=== PATIENT | male | born 1980 | race Caucasian/White ===

== ENCOUNTER 2016-04-27 17:07 | Emergency (ER) | payer MEDICAID ==
[2016-04-27 17:13] VITALS: BP 146/91
[2016-04-27] MEDS ORDERED: Lidocaine 1% 20 ML MDV INJECT ONE (17:24)
[2016-04-27] MEDS ORDERED: Bacitracin/Neomycin/Polymyxin B Oint 0.9 GM U/D Packet TOP ONE (17:25)
--- NOTE | 2016-04-27 17:43 | EDM.PDOC ---
ED HPI Skin/Rash - General Chief Complaint: Laceration Stated Complaint: CUT Time Seen by Provider: 04/27/16 17:20 Source: Reports: Patient History Limitations: Reports: No limitations - History of Present Illness INITIAL COMMENTS - FREE TEXT/NARRATIVE: This patient is a 35 year old male that presents to the ER. Patient reports that he was at home and cut his left hand with a knife. Patient reports it was clean. Patient reports laceration to the left hand near proximal base of thumb. Denies other injury. TDAP UTD. Extremity full ROM. pulses +2. cap refill <2 sec , sensory/motor function intact. Neurovascular intact. Symptom Onset Date: 04/27/16 Symptom Onset Time: 16:45 Timing: Reports: still present Location, Skin: Reports: upper extremity, left Front/Back Body Image: 1 - 1 cm laceration. Severity: mild Place of Occurrence: home Recent Medical Care: no - Related Data Allergies Allergy/AdvReac Type Severity Reaction Status Date / Time latex Allergy Hives Verified 04/27/16 17:14 coban Allergy Itching Uncoded 04/27/16 17:14 Home Meds: Ambulatory Orders Medication Instructions Recorded Confirmed Acetaminophen [Tylenol Extra 1,000 mg PO Q4H PRN 03/01/13 04/27/16 Strength] Ibuprofen [Motrin] 200 mg PO QID PRN 03/01/13 04/27/16 Albuterol [Proair HFA] 2 puff INH Q4HR PRN 10/24/14 04/27/16 Diclofenac Sodium 1 drop EYEBOTH QID 11/30/15 04/27/16 Modafinil [Provigil] 200 mg PO DAILY 11/30/15 04/27/16 Propranolol [Inderal LA] 30 mg PO DAILY 11/30/15 04/27/16 SUMAtriptan Succinate [Imitrex] 100 mg PO DAILY PRN 11/30/15 04/27/16 Past Medical History Other Gastrointestinal History: chronic diarrhea - Past Surgical History Other HEENT Surgeries/Procedures: surgery on his right eye. 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 Social & Family History - Family History Family Medical History: Noncontributory - Tobacco Use Smoking Status *Q: Current Every Day Smoker Years of Tobacco use: 20 Packs/Tins Daily: 0.5 Used Tobacco, but Quit: No Second Hand Smoke Exposure: Yes - Caffeine Use Caffeine Use: Reports: Soda - Alcohol Use Days Per Week of Alcohol Use: 1 Number of Drinks Per Day: 3 (drinks very little compared to previous) Total Drinks Per Week: 3 - Recreational Drug Use Recreational Drug Use: No - Living Situation & Occupation Living situation: Reports: with significant other Occupation: other (currently on [employer] ED ROS GENERAL - Review of Systems Review Of Systems: See Below Constitutional: Reports: no symptoms HEENT: Reports: No symptoms Respiratory: Reports: no symptoms Cardiovascular: Reports: No symptoms Endocrine: Reports: no symptoms GI/Abdominal: Reports: No symptoms : Reports: no symptoms Musculoskeletal: Reports: no symptoms Skin: Reports: wound (laceration left hand) Neurological: Reports: no symptoms Psychiatric: Reports: No symptoms Hematologic/Lymphatic: Reports: no symptoms Immunologic: Reports: no symptoms ED EXAM, SKIN/RASH Exam: See Below Exam Limited By: No limitations General Appearance: alert, WD/WN, no apparent distress Cardiovascular: normal peripheral pulses Peripheral Pulses: 2+: radial (L), radial (R) Extremities: normal range of motion, non-tender, no pedal edema, normal capillary refill Skin: Warm, Dry, Normal color, No rash, Wound/incision (small 1 cm laceration left hand.) Location, Skin: upper extremity, left ED SKIN PROCEDURES - Laceration/Wound Repair Left Dorsal Hand Lac/wound length in cm: 1 Appearance: subcutaneous Distal NVT: neuro & vascular intact, no tendon injury Anesthetic type: local Local anesthesia - Lidocaine (Xylocaine): 1% plain Local anesthetic volume: 2cc Skin prep: chlorhexidine (hibiciens) Exploration/Debridement/Repair: wound explored, in a bloodless field, explored to base, no foreign material found Closed with: sutures Suture size: other (5-0) # of sutures: 2 Suture type: nylon Tetanus status addressed: Yes Complications: No Course - Vital Signs Last Recorded V/S: Last Vital Signs Temp 98.7 F 04/27/16 17:11 Pulse 97 04/27/16 17:11 Resp 20 04/27/16 17:11 BP 146/91 H 04/27/16 17:11 Pulse Ox 93 L 04/27/16 17:11 - Orders/Labs/Meds Meds: Medications Discontinued Medications Generic Name Dose Route Start Last Admin Trade Name Rashawn PRN Reason Stop Dose Admin Lidocaine HCl 6 ml 04/27/16 17:24 04/27/16 17:32 Xylocaine 1% INJECT 04/27/16 17:25 6 ml ONETIME ONE Administration Neomycin/Polymyxin/Bacitracin 1 each 04/27/16 17:25 04/27/16 17:32 Triple Antibiotic Oint TOP 04/27/16 17:26 1 each ONETIME ONE Administration Departure - Departure Time of Disposition: 17:42 Disposition: Home, Self-Care 01 Condition: good Clinical Impression: Laceration Instructions: Laceration Care, Adult, [id number] Referrals: Deisy Hurtado PA [Primary Care Provider] - Forms: ED Department Discharge Additional Instructions: Followup with your primary care provider for suture removal in about 5 days Return to the ER for worsening of condition or any emergent concerns such as redness, swelling, drainage, fever Wash gently with soap and water, rinse, pat dry. Keep clean and dry - Assessment/Plan Plan: SEE RN NOTE FOR PFSH.
== END 2016-04-27 17:46 | disposition home or self-care (01) ==
LOC: CC.ED 17:07
DX: S61.412A Laceration without foreign body of left hand, initial encounter (principal); F17.210 Nicotine dependence, cigarettes, uncomplicated; Z91.040 Latex allergy status; Z91.09 Other allergy status, other than to drugs and biological substances; W26.0XXA Contact with knife, initial encounter; Y92.009 Unspecified place in unspecified non-institutional (private) residence as the place of occurrence of the external cause
CPT/HCPCS: 12001; 99282

== ENCOUNTER 2017-12-31 11:36 | Emergency (ER) | payer MEDICAID ==
[2017-12-31] MEDS ORDERED: Ondansetron 4 MG/2 ML SDV IVPUSH STA (11:52)
[2017-12-31] MEDS ORDERED: Ketorolac 30 MG/ML SDV IVPUSH ONE (12:03)
[2017-12-31 12:12] LABS: CHLORIDE,CL 85 mEq/L (98-106)
[2017-12-31] MEDS: Sodium Chloride 0.9% 1,000 ML IV SCH ×3 (12:20→14:22)
[2017-12-31] MEDS ORDERED: HYDROmorphone 1 MG/ML Syringe IVPUSH ONE ×2 (12:38→14:43)
[2017-12-31 13:14] LABS: SODIUM,NA 121 mEq/L (136-145)
[2017-12-31 13:25] LABS: O2 DELIVERY DEVICE NASAL CANNULA
[2017-12-31 13:26] LABS: BICARBONATE,ARTERIAL 23.6 mm/L (22.0-26.0); O2 SATURATION ARTERIAL 95 % (95-98); PCO2 ARTERIAL 36 mm/Hg0 (35-45); PO2 ARTERIAL 76 mm/Hg (80-100)
--- NOTE | 2017-12-31 14:32 | EDM.PDOC ---
ED HPI GENERAL MEDICAL PROBLEM - General Chief Complaint: General Stated Complaint: ABD PAIN/BACK PAIN, WT. LOSS Time Seen by Provider: 12/31/17 12:01 Source of Information: Reports: Patient - History of Present Illness Onset: Gradual Duration: Getting Worse Location: Reports: Abdomen Quality: Reports: Stabbing, Throbbing Severity: Severe Improves with: Reports: None Lower Back Pain Score (Numeric/FACES): 8 - Related Data Allergies Allergy/AdvReac Type Severity Reaction Status Date / Time latex Allergy Hives Verified 12/31/17 11:41 coban Allergy Itching Uncoded 12/31/17 11:41 Home Meds: Home Meds Acetaminophen [Tylenol Extra Strength] 1,000 mg PO Q4H PRN 03/01/13 [History] Ibuprofen [Motrin] 200 mg PO QID PRN 03/01/13 [History] Albuterol [Proair HFA] 2 puff INH Q4HR PRN 10/24/14 [History] Brimonidine Tartrate [Alphagan P 0.1% Ophth Soln] 1 drop EYELF BID 12/31/17 [ History] Escitalopram Oxalate 10 mg PO DAILY 12/31/17 [History] Latanoprost/Pf [Latanoprost 0.005% Eye Drop] 1 drop EYELF BEDTIME 12/31/17 [ History] Lisinopril/Hydrochlorothiazide [Lisinopril-Hctz 10-12.5 mg Tab] 1 tab PO DAILY 12/31/17 [History] Sildenafil Citrate [Sildenafil] 50 mg PO ASDIRECTED 12/31/17 [History] Past Medical History Cardiovascular History: Reports: Hypertension Other Gastrointestinal History: chronic diarrhea Psychiatric History: Reports: Depression - Infectious Disease History Infectious Disease History: Reports: Meningitis - Past Surgical History Other HEENT Surgeries/Procedures: surgery on his right eye. 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 Social & Family History - Family History Family Medical History: Noncontributory - Tobacco Use Smoking Status *Q: Current Every Day Smoker Years of Tobacco use: 20 Packs/Tins Daily: 1 - Caffeine Use Caffeine Use: Reports: Soda - Recreational Drug Use Recreational Drug Use: No - Living Situation & Occupation Living situation: Reports: with Significant Other Occupation: Other ED ROS GENERAL - Review of Systems Review Of Systems: See Below Constitutional: Reports: Fever, Chills HEENT: Reports: No Symptoms Respiratory: Reports: No Symptoms Cardiovascular: Reports: No Symptoms Endocrine: Reports: Fatigue, Polydypsia, Polyuria GI/Abdominal: Reports: Abdominal Pain, Constipation, Decreased Appetite, Nausea , Vomiting : Reports: No Symptoms Musculoskeletal: Reports: No Symptoms Skin: Reports: No Symptoms Neurological: Reports: Headache Hematologic/Lymphatic: Reports: No Symptoms Immunologic: Reports: No Symptoms ED EXAM, GENERAL - Physical Exam Exam: See Below Exam Limited By: No Limitations General Appearance: Alert, WD/WN, Moderate Distress Throat/Mouth: Normal Inspection, Normal Oropharynx, Normal Voice Head: Atraumatic, Normocephalic Neck: Supple, Non-Tender Respiratory/Chest: No Respiratory Distress, Lungs Clear, Normal Breath Sounds, No Accessory Muscle Use, Chest Non-Tender Cardiovascular: Normal Peripheral Pulses, Regular Rate, Rhythm, No Murmur Peripheral Pulses: 2+: Radial (L), Radial (R) GI/Abdominal: Distended, Tender, Other (hypoactive bowel sounds) Back Exam: No: CVA Tenderness (L), CVA Tenderness (R) Extremities: Normal Inspection, Normal Range of Motion, Non-Tender, Normal Capillary Refill Neurological: Alert, Oriented, Normal Cognition Psychiatric: Normal Affect Skin Exam: Warm, Dry, Intact Lymphatic: No Adenopathy Course - Vital Signs Last Recorded V/S: Last Vital Signs Temp 36.6 C 12/31/17 11:39 Pulse 95 12/31/17 11:39 Resp 20 12/31/17 11:39 BP 122/74 12/31/17 11:39 Pulse Ox 96 12/31/17 11:39 - Orders/Labs/Meds Orders: Active Orders 24 hr Category Date Time Status EKG Documentation Completion [RC] URGENT Care 12/31/17 13:06 Active Oxygen Therapy, ED [RC] ASDIRECTED Care 12/31/17 12:39 Active Abdomen 2V AP Flat Upright [CR] Stat Exams 12/31/17 11:51 Taken Sodium Chloride 0.9% [Normal Saline] 1,000 ml Med 12/31/17 12:00 Active IV ASDIRECTED Medication Orders Sodium Chloride (Normal Saline) 1,000 mls @ 999 mls/hr IV ASDIRECTED OSKAR Last Admin: 12/31/17 13:21 Dose: 999 mls/hr Infusion: 12/31/17 13:21 Dose: 999 mls/hr Admin: 12/31/17 12:20 Dose: 999 mls/hr Labs: Laboratory Tests 12/31/17 12/31/17 12/31/17 Range/Units 11:54 11:54 13:20 WBC 11.9 H (5.0-10.0) 10^3/uL RBC 4.05 L (4.50-6.00) 10^6/uL Hgb TNP Hct 33.6 L (40.0-54.0) % MCV 83.0 (82.0-94.0) fL MCH TNP MCHC TNP RDW Coeff of Tabatha 12.4 (11.0-15.0) % Plt Count 255 (150-400) 10^3/uL Neut % (Auto) 79.2 (35-85) % Lymph % (Auto) 5.9 L (10-55) % [place] % (Auto) 12.8 (0-16) % Eos % (Auto) 1.8 (0-5) % Baso % (Auto) 0.3 (0-3) % Neut # (Auto) 9.43 H (1.80-7.00) 10^3/uL Lymph # (Auto) 0.70 L (1.00-4.80) 10^3/uL [place] # (Auto) 1.53 H (0.00-0.80) 10^3/uL Eos # (Auto) 0.22 (0.00-0.45) 10^3/uL Baso # (Auto) 0.03 10^3/uL ABG pH 7.42 (7.35-7.45) ABG pCO2 36 (35-45) mm/Hg0 ABG pO2 76 L (80-100) mm/Hg ABG HCO3 23.6 (22.0-26.0) mm/L ABG O2 Saturation 95 (95-98) % ABG Base Excess -1.0 (-2.0-3.0) O2 Delivery Device Nasal cannula Sodium 121 L* (136-145) mEq/L Potassium 4.4 (3.5-5.0) mEq/L Chloride 85 L (98-106) mEq/L Carbon Dioxide 22 (21-32) mmol/L BUN 15 (7-18) mg/dL Creatinine 0.9 (0.7-1.3) mg/dL Est Cr Clr Drug Dosing 122.15 mL/min Estimated GFR (MDRD) > 60 (>=60) mL/min Glucose 570 H* D (75-99) mg/dL Calcium 8.5 (8.4-10.1) mg/dL Total Bilirubin 1.5 H (0.0-1.0) mg/dL AST 31 (15-37) U/L ALT 36 (12-78) U/L Alkaline Phosphatase 132 H (46-116) U/L Troponin I < 0.017 (0.00-0.06) ng/mL Total Protein 7.9 (6.4-8.2) g/dL Albumin 3.3 L (3.4-5.0) g/dL Urine Color (YELLOW) Urine Appearance (CLEAR) Urine pH (4.5-8.0) Ur Specific [place] (1.003-1.020) Urine Protein (NEGATIVE) mg/dL Urine Glucose (UA) (NEGATIVE) mg/dL Urine Ketones (NEGATIVE) mg/dL Urine Occult Blood (NEGATIVE) Urine Nitrite (NEGATIVE) Urine Bilirubin (NEGATIVE) Urine Urobilinogen (0.2-1.0) EU/dL Ur Leukocyte Esterase (NEGATIVE) Urine RBC (0-5) /HPF Urine WBC (0-5) /HPF Ur Epithelial Cells (NOT SEEN) /HPF 12/31/17 Range/Units 14:02 WBC (5.0-10.0) 10^3/uL RBC (4.50-6.00) 10^6/uL Hgb Hct (40.0-54.0) % MCV (82.0-94.0) fL MCH MCHC RDW Coeff of Tabatha (11.0-15.0) % Plt Count (150-400) 10^3/uL Neut % (Auto) (35-85) % Lymph % (Auto) (10-55) % [place] % (Auto) (0-16) % Eos % (Auto) (0-5) % Baso % (Auto) (0-3) % Neut # (Auto) (1.80-7.00) 10^3/uL Lymph # (Auto) (1.00-4.80) 10^3/uL [place] # (Auto) (0.00-0.80) 10^3/uL Eos # (Auto) (0.00-0.45) 10^3/uL Baso # (Auto) 10^3/uL ABG pH (7.35-7.45) ABG pCO2 (35-45) mm/Hg0 ABG pO2 (80-100) mm/Hg ABG HCO3 (22.0-26.0) mm/L ABG O2 Saturation (95-98) % ABG Base Excess (-2.0-3.0) O2 Delivery Device Sodium (136-145) mEq/L Potassium (3.5-5.0) mEq/L Chloride (98-106) mEq/L Carbon Dioxide (21-32) mmol/L BUN (7-18) mg/dL Creatinine (0.7-1.3) mg/dL Est Cr Clr Drug Dosing mL/min Estimated GFR (MDRD) (>=60) mL/min Glucose (75-99) mg/dL Calcium (8.4-10.1) mg/dL Total Bilirubin (0.0-1.0) mg/dL AST (15-37) U/L ALT (12-78) U/L Alkaline Phosphatase (46-116) U/L Troponin I (0.00-0.06) ng/mL Total Protein (6.4-8.2) g/dL Albumin (3.4-5.0) g/dL Urine Color Light yellow (YELLOW) Urine Appearance Clear (CLEAR) Urine pH 5.0 (4.5-8.0) Ur Specific [place] 1.010 (1.003-1.020) Urine Protein Trace H (NEGATIVE) mg/dL Urine Glucose (UA) 500 H (NEGATIVE) mg/dL Urine Ketones 80 H (NEGATIVE) mg/dL Urine Occult Blood Negative (NEGATIVE) Urine Nitrite Negative (NEGATIVE) Urine Bilirubin Small H (NEGATIVE) Urine Urobilinogen 0.2 (0.2-1.0) EU/dL Ur Leukocyte Esterase Negative (NEGATIVE) Urine RBC Not seen (0-5) /HPF Urine WBC Not seen (0-5) /HPF Ur Epithelial Cells Occasional H (NOT SEEN) /HPF Meds: Medications Generic Name Dose Route Start Last Admin Trade Name Freq PRN Reason Stop Dose Admin Sodium Chloride 1,000 mls @ 999 mls/hr 12/31/17 12:00 12/31/17 13:21 Normal Saline IV 999 mls/hr ASDIRECTED OSKAR Administration Discontinued Medications Generic Name Dose Route Start Last Admin Trade Name Rashawn PRN Reason Stop Dose Admin Hydromorphone HCl 0.5 mg 12/31/17 12:38 12/31/17 12:45 Dilaudid IVPUSH 12/31/17 12:39 0.5 mg ONETIME ONE Administration Ketorolac Tromethamine 30 mg 12/31/17 12:03 12/31/17 12:06 Toradol IVPUSH 12/31/17 12:04 30 mg ONETIME ONE Administration Ondansetron HCl 4 mg 12/31/17 11:52 12/31/17 12:02 Zofran IVPUSH 12/31/17 11:53 4 mg NOW STA Administration Departure - Departure Time of Disposition: 14:33 Disposition: DC/Tfer to [facility] Access 66 Condition: Good Clinical Impression: DKA (diabetic ketoacidoses) - Discharge Information *PRESCRIPTION DRUG MONITORING PROGRAM REVIEWED*: Not Applicable *COPY OF PRESCRIPTION DRUG MONITORING REPORT IN PATIENT KIM: Not Applicable Instructions: Diabetic Ketoacidosis Referrals: Deisy Hurtado PA [Primary Care Provider] - - Problem List Review Problem List Initiated/Reviewed/Updated: Yes - My Orders Last 24 Hours: My Active Orders 12/31/17 11:51 Abdomen 2V AP Flat Upright [CR] Stat 12/31/17 12:00 Sodium Chloride 0.9% [Normal Saline] 1,000 ml IV ASDIRECTED 12/31/17 12:39 Oxygen Therapy, ED [RC] ASDIRECTED 12/31/17 13:06 EKG Documentation Completion [RC] URGENT - Assessment/Plan Last 24 Hours: My Active Orders 12/31/17 11:51 Abdomen 2V AP Flat Upright [CR] Stat 12/31/17 12:00 Sodium Chloride 0.9% [Normal Saline] 1,000 ml IV ASDIRECTED 12/31/17 12:39 Oxygen Therapy, ED [RC] ASDIRECTED 12/31/17 13:06 EKG Documentation Completion [RC] URGENT Assessment:: DKA Given 2L IV NS here in ER. Labs consistent with DKA. I [place] the [place] [facility] capabilities [place] [facility] [place]. Ibarra reports he will accept the patient for further care and monitoring. Risks and benefits of transfer discussed with patient and family at bedside. Risk includes MVA, . Benefit includes care not available at this facility. Patient and family agree to transfer. Patient stable and resting at time of note, under RN supervision, awaiting BLS ground transfer.
[2017-12-31 14:43] VITALS: BP 130/69
== END 2017-12-31 15:10 | disposition critical access hospital (66) ==
LOC: CC.ED 11:36
DX: E11.10 Type 2 diabetes mellitus with ketoacidosis without coma (principal); I10 Essential (primary) hypertension; F17.210 Nicotine dependence, cigarettes, uncomplicated; Z91.040 Latex allergy status; Z79.899 Other long term (current) drug therapy; Z88.8 Allergy status to other drugs, medicaments and biological substances
CPT/HCPCS: 36415; 74019; 80053; 81001; 82803; 82962; 84484; 85025; 93005; 96361; 96374; 96375; 96376; 99285; J1170; J1885; J2405; J7030; 36600

== ENCOUNTER 2018-05-23 21:21 | Emergency (ER) | payer MEDICAID ==
[2018-05-23] MEDS ORDERED: Amoxicillin 500 MG Cap PO ONE (21:22)
[2018-05-23] MEDS ORDERED: Acetaminophen/HYDROcodone 325-5 MG Tab PO ONE (21:22)
[2018-05-23 21:26] VITALS: BP 137/70
[2018-05-23] MEDS ORDERED: cefTRIAXone 1 GM Vial IM ONE (21:48)
[2018-05-23] MEDS ORDERED: Lidocaine 2% Viscous Solution 15 ML Cup PO ONE (21:48)
[2018-05-23] MEDS ORDERED: Ketorolac 60 MG/2 ML SDV IM ONE (21:48)
[2018-05-23] MEDS ORDERED: Lidocaine 1% 20 ML MDV INJECT ONE (21:48)
[2018-05-23] MEDS ORDERED: Take Home: Acetaminophen/HYDROcodone 325-5 MG, 2 Tab Pack PO ONE (21:52)
--- NOTE | 2018-05-23 21:56 | EDM.PDOC ---
ED HPI GENERAL MEDICAL PROBLEM - General Chief Complaint: General Stated Complaint: tootheache Time Seen by Provider: 05/23/18 21:45 Source of Information: Reports: Patient History Limitations: Reports: No Limitations - History of Present Illness INITIAL COMMENTS - FREE TEXT/NARRATIVE: Niall is a 37 yo male who presents to the ED via private vehicle with complaints of a toothache. States symptoms started Tuesday and has progressively gotten worse. Initially tried Tylenol and ibuprofen which hasn't been helping. States he does have Toradol at home. Admits to a broken tooth a couple months ago but didn't have any discomfort until Tuesday. States it hurts even into his neck and left nostril. Unable to chew anything on that side. Has tried oraljel without any relief. States he is going to see a dentist tomorrow. 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 Left Upper Oral/Mouth Pain Score (Numeric/FACES): 7 - Related Data Allergies Allergy/AdvReac Type Severity Reaction Status Date / Time fentanyl Allergy Vomiting Verified 05/23/18 21:52 latex Allergy Hives Verified 12/31/17 11:41 oxycodone Allergy Hallucinati Verified 05/23/18 21:52 ons coban Allergy Itching Uncoded 12/31/17 11:41 Home Meds: Home Meds Acetaminophen [Tylenol Extra Strength] 1,000 mg PO Q4H PRN 03/01/13 [History] Ibuprofen [Motrin] 200 mg PO QID PRN 03/01/13 [History] Albuterol [Proair HFA] 2 puff INH Q4HR PRN 10/24/14 [History] Brimonidine Tartrate [Alphagan P 0.1% Ophth Soln] 1 drop EYELF BID 12/31/17 [ History] Escitalopram Oxalate 10 mg PO DAILY 12/31/17 [History] Latanoprost/Pf [Latanoprost 0.005% Eye Drop] 1 drop EYELF BEDTIME 12/31/17 [ History] Lisinopril/Hydrochlorothiazide [Lisinopril-Hctz 10-12.5 mg Tab] 1 tab PO DAILY 12/31/17 [History] Sildenafil Citrate [Sildenafil] 50 mg PO ASDIRECTED 12/31/17 [History] Fenofibrate 160 mg PO DAILY 05/23/18 [History] Ketorolac [Toradol] 15 - 30 mg IV Q6H PRN 05/23/18 [History] Melatonin 15 mg PO BEDTIME 05/23/18 [History] busPIRone [Buspar] 15 mg PO BID 05/23/18 [History] metFORMIN [Glucophage XR] 500 mg PO BID 05/23/18 [History] Past Medical History Cardiovascular History: Reports: Hypertension Other Gastrointestinal History: chronic diarrhea Neurological History: Reports: Migraines Psychiatric History: Reports: Depression Endocrine/Metabolic History: Reports: Diabetes, Type II - Infectious Disease History Infectious Disease History: Reports: Meningitis - Past Surgical History Other HEENT Surgeries/Procedures: surgery on his right eye. 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 Social & Family History - Family History Family Medical History: Noncontributory - Tobacco Use Smoking Status *Q: Current Every Day Smoker Years of Tobacco use: 20 Packs/Tins Daily: 1 - Caffeine Use Caffeine Use: Reports: Coffee, Soda - Recreational Drug Use Recreational Drug Use: No - Living Situation & Occupation Living situation: Reports: with Significant Other Occupation: Other ED ROS GENERAL - Review of Systems Review Of Systems: See Below Constitutional: Denies: Fever, Chills HEENT: Reports: Dental Pain, Nose Pain. Denies: Ear Pain Respiratory: Reports: No Symptoms Cardiovascular: Reports: No Symptoms ED EXAM, GENERAL - Physical Exam Exam: See Below Exam Limited By: No Limitations General Appearance: Alert, Mild Distress Ears: Normal External Exam, Hearing Grossly Normal Ear Exam: Left Ear: Auricle Normal, Canal Normal, TM normal, Tenderness Nose: Normal Inspection, Normal Mucosa, No Blood. No: Nasal Swelling, Nasal Drainage Throat/Mouth: Normal Inspection, Normal Oropharynx, Other (Broken molar upper right aspect of mouth. No obvious abscess noted. ). No: Normal Teeth Head: Facial Tenderness, Sinus Tenderness (left maxillary). No: Facial Swelling Neck: Normal Inspection, Tender Lateral, Other (no abscess). No: Lymphadenopathy (L) Neurological: Alert, Oriented Psychiatric: Normal Affect, Anxious Skin Exam: Warm, Dry, Intact, Normal Color, No Rash. No: Increased Warmth Course - Vital Signs Last Recorded V/S: Last Vital Signs Temp 98.9 F 05/23/18 21:23 Pulse 90 05/23/18 21:23 Resp 20 05/23/18 21:23 BP 137/70 05/23/18 21:23 Pulse Ox 95 05/23/18 21:23 - Orders/Labs/Meds Orders: Active Orders 24 hr Category Date Time Status Ketorolac [Toradol] Med 05/23/18 21:48 Once 60 mg IM ONETIME ONE Lidocaine 1% [Xylocaine 1%] Med 05/23/18 21:48 Once 20 ml INJECT ONETIME ONE Lidocaine 2% [Xylocaine 2% Viscous] Med 05/23/18 21:48 Once 15 ml PO ONETIME ONE cefTRIAXone [Rocephin] Med 05/23/18 21:48 Once 1 gm IM ONETIME ONE Departure - Departure Time of Disposition: 21:59 Disposition: Home, Self-Care 01 Clinical Impression: Broken or cracked tooth, nontraumatic, Toothache - Discharge Information Additional Instructions: 1) See dentist in am 2) [place] 5/325 - 1 tablet every 6 hours as needed for pain 3) May alternate with 800mg of ibuprofen, recommend taking with food 4) Amoxicillin 875mg twice a day for 10 days. 5) Return to ED if any concerns. - Problem List & Annotations (1) Broken or cracked tooth, nontraumatic SNOMED Code(s): 553521292 Code(s): K03.81 - CRACKED TOOTH Status: Acute Current Visit: Yes (2) Toothache SNOMED Code(s): 60194368 Code(s): K08.89 - OTHER SPECIFIED DISORDERS OF TEETH AND SUPPORTING STRUCTURES Status: Acute Current Visit: Yes - My Orders Last 24 Hours: My Active Orders 05/23/18 21:48 Ketorolac [Toradol] 60 mg IM ONETIME ONE Lidocaine 1% [Xylocaine 1%] 20 ml INJECT ONETIME ONE Lidocaine 2% [Xylocaine 2% Viscous] 15 ml PO ONETIME ONE cefTRIAXone [Rocephin] 1 gm IM ONETIME ONE - Assessment/Plan Last 24 Hours: My Active Orders 05/23/18 21:48 Ketorolac [Toradol] 60 mg IM ONETIME ONE Lidocaine 1% [Xylocaine 1%] 20 ml INJECT ONETIME ONE Lidocaine 2% [Xylocaine 2% Viscous] 15 ml PO ONETIME ONE cefTRIAXone [Rocephin] 1 gm IM ONETIME ONE Plan: 1 gram of Rocephin and 60mg of Toradol was given intramuscularly. Viscous lidocaine soaked in cotton ball and applied to area. Relief noted. Will discharge home, please see additional instructions and take home medications.
[2018-05-23] MEDS ORDERED: Take Home: Amoxicillin 500 MG Cap, 2 Cap Pack PO ONE (22:05)
== END 2018-05-23 22:30 | disposition home or self-care (01) ==
LOC: CC.ED 21:21
DX: K03.81 Cracked tooth (principal); I10 Essential (primary) hypertension; E11.9 Type 2 diabetes mellitus without complications; F32.9 Major depressive disorder, single episode, unspecified; F17.210 Nicotine dependence, cigarettes, uncomplicated; Z79.899 Other long term (current) drug therapy; Z88.8 Allergy status to other drugs, medicaments and biological substances; Z91.040 Latex allergy status
CPT/HCPCS: 96372; 99282; A9270-GY; J0696; J1885

== ENCOUNTER → 2019-03-09 | Day surgery (SDC) | payer MEDICAID ==
[~2019-03-09] MED LIST: Lidocaine 1% 20 ML MDV ONE
[2019-03-09 16:11] VITALS: BP 136/70; PULSE 77
--- NOTE | 2019-03-09 17:57 | OR ---
DATE OF OPERATION: 03/09/2019 PREOPERATIVE DIAGNOSIS: PROBABLE CYSTIC MASS, RIGHT THUMB PAD. POSTOPERATIVE DIAGNOSIS: PROBABLE CYSTIC MASS, RIGHT THUMB PAD. SURGEON: Domenic Marrero MD PROCEDURE: INCISION WITH ENUCLEATION, EXCISION OF 1 X 1 CM CYST OF THE RIGHT THUMB PAD. ANESTHESIA: Local. SPECIMEN: Cyst. INDICATIONS: This 38-year-old male has had an enlarging cyst of the right thumb pad that he has had apparently lanced once or twice before, but it is moderately large and does not seem to be associated with anything, but soft tissue. DESCRIPTION OF PROCEDURE: After adequate preparation and prepping of the hand, 1% plain Xylocaine was used to do a digital block of the thumb. This was supplemented with a small amount of lidocaine around the end of the thumb. An incision was made and carried down to the subcutaneous tissue. At that point, I ran into a shiny sac-like capsule. I was able to with a mosquito clamp dissect this free from the subcutaneous tissue. This seemed like it was densely adherent to the flexor tendon of the thumb, although it certainly was not tendinous tissue. By sharp dissection, I cut this off the deeper structures and it seemed to be completely enucleated. It measured 1 x 1 cm. There were no other margins wider than the mass itself. Hemostasis was controlled with a small amount of cautery. The wound was closed using interrupted 3-0 nylons, which will remain for 2 weeks. The thumb was sterilely dressed. BPB/MODL /[id number]
== END ==
LOC: CC.SDS 12:57
PROVIDERS: ATTEND Surgery
DX: L72.0 Epidermal cyst (principal); L08.9 Local infection of the skin and subcutaneous tissue, unspecified; L90.5 Scar conditions and fibrosis of skin; J45.909 Unspecified asthma, uncomplicated; I10 Essential (primary) hypertension; E11.40 Type 2 diabetes mellitus with diabetic neuropathy, unspecified; E78.5 Hyperlipidemia, unspecified; G47.33 Obstructive sleep apnea (adult) (pediatric); F32.9 Major depressive disorder, single episode, unspecified; F41.9 Anxiety disorder, unspecified; F17.210 Nicotine dependence, cigarettes, uncomplicated; Z91.048 Other nonmedicinal substance allergy status; Z91.040 Latex allergy status; Z79.899 Other long term (current) drug therapy; Z79.84 Long term (current) use of oral hypoglycemic drugs; Z99.89 Dependence on other enabling machines and devices